=== PATIENT | female | born 1945 | race Two or more races ===

== ENCOUNTER 2022-08-12 08:51 | Outpatient (CLI) | payer OTHER ==
[~2022-08-12 08:51] MED LIST: AMILODIPINE PO; CALTRATE PO; DAFLONEX-XL TA1 EACH PO; FOLIC ACID1 MG PO; IBERSARTAN PO; NEPHRONEX-SL T1 EACH PO; SYNTH PO; SYNTHROID50 MCG PO; ZOCOR20 MG PO; [UNRECOGNIZED DRUG - OTHER] PO; [UNRECOGNIZED DRUG - OTHER] PO
== END 2022-08-12 08:53 | disposition home or self-care (01) ==
LOC: SONOGRAMA 08:51
PROVIDERS: ATTEND Pathology Anatomic Pathology
DX: D34 Benign neoplasm of thyroid gland (principal); E04.9 Nontoxic goiter, unspecified; E04.2 Nontoxic multinodular goiter